=== PATIENT | male | born 1995 | race African-American/Black ===

== ENCOUNTER 2016-05-30 01:49 | Emergency (ER) ==
[2016-05-30 02:10] VITALS: BP 132/72
[2016-05-30] MEDS ORDERED: MOTRIN LIQUID PO ONE (02:11)
--- NOTE | 2016-05-30 02:37 | PROVIDER DOCUMENTATION ---
HPI-General Adult - General Chief Complaint: Cold Symptoms Stated Complaint: FLU LIKE SX Time Seen by Provider: 05/30/16 02:10 Source: patient Allergies/Adverse Reactions: Patient Allergies Allergy/AdvReac Type Severity Reaction Status Date / Time No Known Allergies Allergy Verified 02/24/16 23:35 Home Medications: Home Medication List Medication Instructions Recorded Confirmed Last Taken Type No Home Medications 05/10/16 05/10/16 Unknown History - History of Present Illness -Gen Adult Nature of Presenting Problems: Abigail NEWSOME PRESENTS TO ED WITH C/O PT STATES COUGH, CONGESTION, BODY ACHES, SORE THROAT, RUNNY NOSE, AND FEVER X 3 DAYS. PT STATES NAUSEA W/ NO V/D. Location of Pain/Injury: reports: generalized Pain Radiation: reports: no radiation Quality of Pain: reports: aching Severity: reports: moderate Onset/Duration: reports: 3 days ago Timing: reports: still present Context/Activities at Onset: reports: light activity Modifying Factors: improves with: nothing Associated Symptoms: reports: cough, fever/chills, sinus congestion/drainage, nausea Similar Symptoms Previously?: No Recently seen or treated by another doctor?: No Review of Systems - Adult - REVIEW OF SYSTEMS - ADULT Constitutional: reports: fever. denies: chills Eyes: reports: no symptoms reported Ears, Nose, Mouth & Throat: reports: sinus problem, throat pain Cardiovascular: denies: chest pain, palpitations, syncope Respiratory: reports: cough. denies: shortness of breath, wheezing Gastrointestinal: reports: nausea. denies: abdominal pain, diarrhea, vomiting Genitourinary: reports: no symptoms reported Musculoskeletal: denies: back pain, neck pain Integumentary: reports: no symptoms reported Neurological: denies: dizziness/vertigo, headache/migraines, syncope Psychiatric: reports: no symptoms reported Endocrine: reports: no symptoms reported Hematologic/Lymphatic: reports: no symptoms reported Allergic/Immunologic: reports: no symptoms reported All Other Systems: Reviewed and Negative Past History - Adult - PAST MEDICAL HISTORY-ADULT Review of Records: reports: Nursing Assessment Review, Medications Reviewed - IMMUNIZATION STATUS Childhood Immunizations: See Nurse Assessment Flu Vaccine: See Nurse Assessment - SOCIAL HISTORY Living Situation: family Physical Exam-General - CONSTITUTIONAL General Appearance: alert, moderate distress - EYES Eyes: PERRL/EOMI, pink conjunctivae - HEAD, EARS, NOSE, MOUTH & THROAT HENMT: normocephalic/atraumatic, moist mucous membranes - NECK Neck: non-tender, full range of motion, supple - RESPIRATORY Respiratory: chest non-tender, lungs clear, normal breath sounds - CARDIOVASCULAR Cardiovascular: normal peripheral pulses, tachycardia - GASTROINTESTINAL (ABDOMEN) Abdominal Exam: normal bowel sounds, non tender, soft - LYMPHATIC Lymphatic: no adenopathy - MUSCULOSKELETAL Back Exam: normal inspection, no CVA tenderness, no vertebral tenderness Extremity: normal range of motion, non-tender - SKIN Integumentary: normal color, normal turgor, warm/dry - NEUROLOGIC Neurologic: grossly normal - PSYCHIATRIC Psych/Mental Status: oriented x 3 Progress - PLAN OF CARE/RESULTS Progress/Plan/Lab Results: Laboratory Tests 05/30/16 02:15 Influenza A (Rapid) POSITIVE A Influenza B (Rapid) NEGATIVE Orders Category Date Time Status INFLUENZA SCREEN PL Stat Lab 05/30/16 02:15 Completed Ibuprofen [Motrin Liquid] Med 05/30/16 02:11 Discontinued 600 mg PO NOW ONE Oseltamivir [Tamiflu] Med 05/30/16 02:54 Discontinued 75 mg PO NOW ONE Vital Signs - 24 hr 05/30/16 02:00 Temperature 103.4 F H Pulse Rate 105 H Respiratory 20 Rate Blood Pressure 132/72 O2 Sat by Pulse 97 Oximetry Departure - Departure Time of Disposition Order: 02:54 DIAGNOSIS: Flu Disposition: HOME 01 Certified Medical Emergency: Emergent Condition: Stable Additional Instructions: ED Follow Up Instructions: You have been treated by a care provider in the Emergency Department. These instructions are being provided to you so you can have an understanding of how to care for yourself upon discharge. Upon discharge from the Emergency Department, you are responsible for making arrangements for follow-up care by a physician of your choice. Take all prescribed medications as directed. Return to the Emergency Department immediately for any new or worsening symptoms. You may call the Physician Referral phone number at [phone] to obtain a list of Physicians who are taking new patients. Attestation - Scribe Verification/Attestation Scribe:: Jim Atkins Acting as Scribe for:: Kevin Blanca Scribe documention review:: This chart was documented by a scribe and accurately reflects the service the provider performed and the decisions made by the provider.
[2016-05-30] MEDS ORDERED: TAMIFLU PO ONE (02:54)
== END 2016-05-30 03:09 | disposition home or self-care (01) ==
LOC: P.ED 01:49
DX: J11.1 Influenza due to unidentified influenza virus with other respiratory manifestations (principal); R05 Cough; R09.81 Nasal congestion; J02.9 Acute pharyngitis, unspecified; R09.89 Other specified symptoms and signs involving the circulatory and respiratory systems; R50.9 Fever, unspecified; R11.0 Nausea; R52 Pain, unspecified; R00.0 Tachycardia, unspecified
CPT/HCPCS: 87804; 99283